=== PATIENT | male | born 1965 | race Caucasian/White ===

== ENCOUNTER 2021-05-12 07:25 | Outpatient (REF) | payer BC, SELFPAY ==
[2021-05-12 12:20] LABS: MANUAL DIFF FLAG NO
[2021-05-12 12:35] LABS: Basophils Percent Auto 0.6 % (0-2); Eosinophils Absolute Auto 0.1 X10*3/uL (0.0-0.4); Eosinophils Percent Auto 1.7 % (0-4); Hematocrit 47.3 % (42-52); Hemoglobin 15.5 g/dl (14.0-18.0); Imm Gran Abs Auto 0.01 X10*3/uL (0.00-0.03); Imm Gran Pct Auto 0.2 % (0.0-0.4); Lymphocytes Absolute Auto 1.4 X10*3/uL (1.2-4.9); Mean Corpuscular HGB Conc 32.8 g/dl (31.0-36.0); Mean Corpuscular Hemoglobin 31.4 pg (27.0-33.0); Mean Corpuscular Volume 95.9 fL (80-98); Mean Platelet Volume 10.4 fL (9.4-12.4); Monocytes Absolute Auto 0.4 X10*3/uL (0.1-1.2); Neutrophils Absolute Auto 3.3 X10*3/uL (2.0-8.3); Neutrophils Percent Auto 62.5 % (45-73); Platelet Count 148 X10*3/uL (160-400); Red Blood Count 4.93 X10*6/uL (4.60-5.80); Red Cell Distribution Width 11.9 % (11.0-16.0); White Blood Count 5.2 X10*3/uL (4.8-10.8)
[2021-05-12 13:01] LABS: Alanine Aminotransferase 42 U/L (0-40); Albumin Level 4.3 g/dL (3.5-5.0); Alkaline Phosphatase 61 U/L (39-117); Anion Gap 12 (12-20); Aspartate Amino Transferase 27 U/L (5-37); Bilirubin Total 1.2 mg/dL (0.0-1.0); Blood Urea Nitrogen 18 mg/dL (9-16); Carbon Dioxide 26 mmol/L (22-29); Chloride 107 mmol/L (96-108); Cholesterol 158 mg/dL; Estimated Glomerular Filt Rate > 60; Glucose Random 106 mg/dL (60-115); HDL Cholesterol 89 mg/dL; LDL Cholesterol Calculated 58 mg/dl; Sodium 141 mmol/L (135-145); Total Protein 6.5 g/dL (6.5-8.0); Triglycerides 55 mg/dL
[2021-05-12 13:25] LABS: Folate 19.3 ng/mL (> or = 4.0); Free T4 (Free Thyroxine) 0.94 ng/dL (0.71-1.85); Prostate Specific Antigen Scr 0.43 ng/mL (<0.05-4.0); Thyroid Stimulating Hormone 1.71 uIU/mL (0.32-4.0); Vitamin B12 404 pg/mL (200-900)
[2021-05-12 14:01] LABS: Estimated Average Glucose 100 mg/dL; Hemoglobin A1c % 5.1 %
== END 2021-05-12 07:26 | disposition home or self-care (01) ==
LOC: HO.HMGCLDS 07:25
PROVIDERS: PCP Internal Medicine; Visit Provider Internal Medicine
DX: I10 Essential (primary) hypertension (principal); R73.02 Impaired glucose tolerance (oral); K21.9 Gastro-esophageal reflux disease without esophagitis; E78.00 Pure hypercholesterolemia, unspecified; Z12.5 Encounter for screening for malignant neoplasm of prostate
CPT/HCPCS: 36415; 80053; 80061; 82607; 82746; 83036; 84153; 84439; 84443; 85025

== ENCOUNTER 2023-03-15 16:04 | Outpatient (AMB) | payer BC, SELFPAY ==
[2023-03-15 16:14] VITALS: BP 140/74; PULSE 78; O2SAT 98; BMI 31.5
--- NOTE | 2023-03-15 16:14 | A.OFFPC_ITS ---
Vital Signs 03/15/23 16:14 Height 5 ft 11 in Weight 226 lb BMI 31.5 BP 140/74 H Blood Pressure Location Lt brachial Position Sitting Pulse 78 Pulse Source Pulse Oximeter Pulse Oximetry (%) 98 Oxygen Delivery Method Room Air Intake Visit Reasons: annual exam Allergies No Known Allergies Allergy (Verified 03/15/23 16:14) Medication List - Last Reconciled 03/15/23 by Ryan Bautista MD [beet juice pill ] [cbd ] hydrochlorothiazide 12.5 mg PO DAILY 90 days lisinopril 20 mg PO DAILY 90 days Tobacco use date assessed: 03/02/22 Dental Screening Dental Screen Date: 03/15/23 Did you have a dental visit in the last 12 months?: Yes Did you have a dental problem in the last 6 months where you did not have access to dental care?: No Was dental information given to patient?: Patient has dentist HPI annual exam HPI Details 57-year-old obese male with impaired glucose tolerance GERD and hypertension last seen in February 2022 for physical exam. Patient comes in for physical exam. Blood work requested not done noted elevated liver function. blood work will do BP at home is here [facility] Medical History (Updated 03/15/23 @ 17:02 by Ryan Bautista MD) Diverticular disease GERD (gastroesophageal reflux disease) Hypertension Impaired glucose tolerance Thrombocytopenia Surgical History H/O umbilical hernia repair Family History (Updated 03/15/23 @ 16:15 by Clara Mart [facility]) Father Melanoma Mother No problems noted. Brother Melanoma Sister No problems noted. Sister No problems noted. Sister No problems noted. Sister No problems noted. Daughter No problems noted. Daughter No problems noted. Social History (Updated 03/15/23 @ 16:40 by Ryan Bautista MD) Housing: House Alcohol intake: current Alcohol intake frequency: a few times a week Patient Tobacco Use Status: Former Tobacco user Tobacco use type: Cigarette Years Smoked: stopped 1984 e-Cigarette/Vaping Use: Never Used Second Hand Smoke Exposure: No service: No Current occupational status: employed Cognitive needs: No Hearing needs: No Vision needs: No Questionnaire PHQ-9 Over the last 2 weeks, how often have you been bothered by any of the following problems? 1. Little interest or pleasure in doing things: not at all 2. Feeling down, depressed, or hopeless: not at all 3. Trouble falling or staying asleep, or sleeping too much: not at all 4. Feeling tired or having little energy: not at all 5. Poor appetite or overeating: not at all 6. Feeling bad about yourself - or that you are a failure or have let yourself or your family down: not at all 7. Trouble concentrating on things, such as reading the newspaper or watching television: not at all 8. Moving or speaking so slowly that other people could have noticed. Or the opposite - being so fidgety or restless that you have been moving around a lot more than usual: not at all 9. Thoughts that you would be better off or of hurting yourself in some way: not at all Total score: 0 Source: Developed by Drs. Octavio Orozco, Nelida Patel, Souleymane Luke and colleagues, with an educational joo from [employer]. Thrive Questionnaire Date Thrive assessed: 03/15/23 I am a: Patient What is your living situation today?: I have a steady place to live Within the past 12 months, did the food you bought not last and you didn't have the money to get more?: Never true Within the past 12 months, did you worry whether your food would run out before you got money to buy more?: Never true Do you have trouble paying for medicines?: No Do you have trouble getting transportation to medical appointments?: No Do you have trouble paying your heating and electricity bill?: No Do you have trouble taking care of your child, family member or friend?: No Do you have trouble with day-to-day activities such as bathing, preparing meals, shopping, managing finances, etc.?: No Are you currently unemployed and looking for a job?: No Are you interested in more education?: No Currently or been in a relationship where the following occur: no concerns reported AUDIT C Alcohol Use Questionnaire (AUDIT-C) 1. How often do you have a drink containing alcohol?: 2-3 times a week 2. How many drinks containing alcohol do you have on a typical day when you are drinking?: 3 or 4 3. How often do you have six or more drinks on one occasion?: Never Total Score: 4 STANLEY-7 AMB Questionnaire STANLEY-7 Date STANLEY - 7 assessed: 03/15/23 Feeling nervous, anxious, or on edge: 0 = Not at all Not being able to stop or control worryin = Not at all Worrying too much about different things: 0 = Not at all Trouble relaxin = Not at all Being so restless that it is hard to sit still: 0 = Not at all Becoming easily annoyed or irritable: 0 = Not at all Feeling afraid as if something awful might happen: 0 = Not at all Total STANLEY-7 score (0-4 normal; 5-9 mild; 10-14 moderate; 15-21 severe): 0 Source: Developed by Drs. Octavio Orozco, Nelida Patel, Souleymane Luke and colleagues, with an educational joo from [employer]. Review of Systems Const Denies poor appetite and Denies weakness Eyes Denies no additional complaints ENT Reports Normal hearing present, Denies dizziness, Denies nasal congestion, Denies tinnitus and Denies sore throat Card Denies chest pain, Denies syncope, Denies rapid heart rate and Denies dyspnea Resp Denies cough and Denies dyspnea GI Denies change in stool character, Reports constipation, Denies diarrhea, Denies nausea and Denies vomiting Denies dysuria and Denies urinary frequency Neuro Reports Normal hearing present, Denies confusion, Denies dizziness, Denies syncope and Denies weakness Psych Denies confusion Physical exam (Primary Care) Vital Signs: Last Vital Signs Pulse 78 03/15/23 16:14 BP 140/74 H 03/15/23 16:14 Pulse Ox 98 03/15/23 16:14 Oxygen Delivery Method Room Air 03/15/23 16:14 Care Plan Goal for BP management: L ear impacted cerumen R TM intact BMI result Body Mass Index 31.5 Tobacco/Smoking Status: Tobacco use Status Tobacco use date assessed 03/02/22 03/15/23 16:19 Patient Tobacco Use Status Former Tobacco user 03/15/23 16:19 Tobacco use type Cigarette 03/15/23 16:19 e-Cigarette/Vaping Use Never Used 03/15/23 16:19 PHQ-9: PHQ-9 Score PHQ-9: Total score 0 03/15/23 16:19 Thrive Assessment: Date of Thrive Assessment Date Thrive assessed 03/15/23 03/15/23 16:19 Currently or been in a relationship where the following occur: no concerns reported Const General: No confusion Orientation/consciousness: No confusion HENMT Head: Yes normocephalic Ears: external ears normal Face and sinus: Yes normal facial exam Mouth: moist mucous membranes Throat: Yes tonsils normal Eyes Conjunctivae: conjunctivae normal Pupils: Equal, round and reactive pupils present and Pupil accommodation reflex normal Direct Ophthalmoscopy: normal light reflex Neck Neck: No lymphadenopathy Thyroid: Thyroid normal Chest Chest palpation & inspection: normal inspection of the chest Resp Effort & Inspection: normal respiratory effort and no audible wheezes Auscultation: clear to auscultation bilaterally, no crackles, no wheezes and lung sounds not diminished Cardio Rate: regular rate Rhythm: regular rhythm Peripheral pulses: radial pulses present and dorsalis pedis present GI Other: guaiac negative prostate N Palpation (GI): no masses Auscultation: normal bowel sounds and normoactive bowel sounds Male General Exam: Yes normal external exam Skin General skin exam: no rashes or lesions noted Rashes: no rashes Neuro General: No confusion Cranial nerves: Yes Equal, round and reactive pupils present and Yes Normal hearing present Cognition (Neuro): normal cognition Gait exam (Neuro): Normal gait present Motor exam (neuro): 5/5 motor strength present throughout Deep tendon reflexes (DTR's): Right brachioradialis reflex intensity grade: 2+, Left brachioradialis reflex intensity grade: 2+, Right patellar reflex intensity grade: 2+ and Left patellar reflex intensity grade: 2+ Extrem General: No edema Office Procedures Cerumen Removal From which ear canal was the cerumen removed: left Removal: irrigation, otoscope w/curette and cerumen loop/spoon Notes: patient tolerated procedure well, no complications and ear canal clear [id number] Irrigation/Lavage Assessment and Plan Assessment & Plan (1) Annual physical exam: Code(s): Z00.00 - Encounter for general adult medical examination without abnormal findings (2) Hypertension: Code(s): I10 - Essential (primary) hypertension Qualifiers: Hypertension type: primary hypertension Qualified Code(s): I10 - Essential (primary) hypertension Plan: Continue with blood pressure medication. Decrease salt intake and exercise patient is on lisinopril 20 mg once a day and hydrochlorothiazide 12.5 mg once a day (3) GERD (gastroesophageal reflux disease): Code(s): K21.9 - Gastro-esophageal reflux disease without esophagitis Qualifiers: Esophagitis presence: without esophagitis Qualified Code(s): K21.9 - Gastro-esophageal reflux disease without esophagitis Plan: Avoid the foods that causes that usually spicy foods, tomato products, juices, coffee, soda and foods that your sensitive to. After eating do not lie down, allow 3-4 hours before in lie down. And keep the head of bed above 30 degrees to avoid the acid from going up. (4) Impaired glucose tolerance: Code(s): R73.02 - Impaired glucose tolerance (oral) Plan: Decrease the amount of carbohydrate intake, pasta, bread, rice and potatoes are all sugar and that is aside from all the sweet stuff, remember that fruits are good but they are Sweet also. (5) Obesity (BMI 30-39.9): Code(s): E66.9 - Obesity, unspecified Plan: Diet and exercise (6) Fatty liver: Code(s): K76.0 - Fatty (change of) liver, not elsewhere classified Plan: Low-fat diet (7) Tinnitus: Code(s): H93.19 - Tinnitus, unspecified ear Plan: hearing test requested (8) Vision changes: Code(s): H53.9 - Unspecified visual disturbance (9) Impacted cerumen of left ear: Code(s): H61.22 - Impacted cerumen, left ear Plan: irrigation and scoop used TM intact Orders: Orders Vitamin B12 and Folate Today I10 - Essential (primary) hypertension Comprehensive Met. Panel Today I10 - Essential (primary) hypertension Hemoglobin A1c Today R73.02 - Impaired glucose tolerance (oral) Lipid Panel Today E78.00 - Pure hypercholesterolemia, unspecified, I10 - Essential (primary) hypertension Prostate Specific Antigen Scr Today I10 - Essential (primary) hypertension Free T4 (Free Thyroxine) Today I10 - Essential (primary) hypertension Thyroid Stimulating Hormone Today I10 - Essential (primary) hypertension Complete Blood Count Auto Diff Today I10 - Essential (primary) hypertension Hepatitis B,C Profile Today I10 - Essential (primary) hypertension, R79.89 - Other specified abnormal findings of blood chemistry Ferritin Today R73.02 - Impaired glucose tolerance (oral) Referrals Speech and Hearing Referral H93.19 - Tinnitus, unspecified ear Ophthalmology Referral H53.9 - Unspecified visual disturbance Medications: Refilled hydrochlorothiazide 12.5 mg PO DAILY 90 days 90 tabs 3RF I10 - Essential (primary) hypertension lisinopril 20 mg PO DAILY 90 days 90 tabs 3RF I10 - Essential (primary) hypertension Coding Level of Care Code Est Pt Prev Care 40-64y(70338) Diagnoses Annual physical exam Z00.00 Hypertension I10 Hypertension type: primary hypertension GERD (gastroesophageal reflux disease) K21.9 Esophagitis presence: without esophagitis Impaired glucose tolerance R73.02 Obesity (BMI 30-39.9) E66.9 Fatty liver K76.0 Tinnitus H93.19 Vision changes H53.9 Impacted cerumen of left ear H61.22 CPT Codes Office Procedure - CPT: 16654-Bxl Irrigation/Lavage ([id number])
== END 2023-03-15 17:07 | disposition home or self-care (01) ==
PROVIDERS: PCP Internal Medicine; Visit Provider Internal Medicine
DX: Z00.00 Encounter for general adult medical examination without abnormal findings (principal); I10 Essential (primary) hypertension; K21.9 Gastro-esophageal reflux disease without esophagitis; E66.9 Obesity, unspecified; H61.22 Impacted cerumen, left ear
CPT/HCPCS: 69210; 99396

== ENCOUNTER 2023-07-02 09:56 | Outpatient (REF) | payer BC, SELFPAY ==
--- NOTE | ~2023-07-02 | XR_ITS ---
EXAMINATION: XR FOOT, RIGHT CLINICAL INFORMATION: Right ankle sprain, pain COMPARISON: None available. TECHNIQUE: AP, lateral, and oblique views of the right foot. FINDINGS: Hallux valgus and hammertoe deformities are seen. Large calcaneal spur. No fracture or dislocation. XR/XR foot RT min 3V IMPRESSION: Hallux valgus. Large calcaneal spur.
== END 2023-07-02 09:57 | disposition home or self-care (01) ==
LOC: HO.XRAY 09:56
PROVIDERS: PCP Internal Medicine; Visit Provider Podiatrist
DX: S93.401D Sprain of unspecified ligament of right ankle, subsequent encounter (principal)
CPT/HCPCS: 73630

== ENCOUNTER 2023-07-12 12:12 | Outpatient (AMB) | payer BC, SELFPAY ==
[2023-07-12 12:30] VITALS: BP 138/90; PULSE 88; O2SAT 98; BMI 31.1
--- NOTE | 2023-07-12 12:30 | A.OFFPC_ITS ---
Vital Signs 07/12/23 12:30 07/12/23 12:49 Height 5 ft 11 in Weight 223 lb BMI 31.1 BP 138/90 H 120/80 Blood Pressure Location Lt brachial Lt brachial Position Sitting Sitting Pulse 88 Pulse Source Pulse Oximeter Pulse Oximetry (%) 98 Oxygen Delivery Method Room Air Intake Visit Reasons: [facility], Pneumonia, Elem Disease, 07/05 Intake Note: Patient is here to follow-up after a visit the emergency department at [facility] on 07/05 Business Process Lead Required: No Allergies No Known Allergies Allergy (Verified 07/12/23 12:33) Tobacco use date assessed: 07/12/23 Dental Screening Dental Screen Date: 07/12/23 Did you have a dental visit in the last 12 months?: Yes Did you have a dental problem in the last 6 months where you did not have access to dental care?: No Was dental information given to patient?: Patient has dentist HPI [facility], Pneumonia, Elem Disease, 07/05 HPI Details 57-year-old obese male with hypertension GERD impaired glucose tolerance fatty liver coming in for follow-up. Last seen in March 2023 for physical exam. Review of the notes went to the Urgent Care June 2023 cough, fever and was told positive for Lyme disease and pneumonia. had coughing and sob- 07/05/2023- placved on albuterol, doxycycline and augmentin. tick bite on the R hip area, no redness PFSH Medical History (Updated 07/12/23 @ 12:43 by Ryan Bautista MD) Diverticular disease Hypertension Thrombocytopenia GERD (gastroesophageal reflux disease) Impaired glucose tolerance Surgical History H/O umbilical hernia repair Family History (Updated 03/15/23 @ 16:15 by Clara Mart CMA) Father Melanoma Mother No problems noted. Brother Melanoma Sister No problems noted. Sister No problems noted. Sister No problems noted. Sister No problems noted. Daughter No problems noted. Daughter No problems noted. Social History (Updated 03/15/23 @ 16:40 by Ryan Bautista MD) Housing: House Alcohol intake: current Alcohol intake frequency: a few times a week Patient Tobacco Use Status: Former Tobacco user Tobacco use type: Cigarette Years Smoked: stopped 1984 e-Cigarette/Vaping Use: Never Used Second Hand Smoke Exposure: No service: No Current occupational status: employed Cognitive needs: No Hearing needs: No Vision needs: No Questionnaire Thrive Questionnaire Date Thrive assessed: 03/15/23 AUDIT C Alcohol Use Questionnaire (AUDIT-C) 1. How often do you have a drink containing alcohol?: 2-3 times a week 2. How many drinks containing alcohol do you have on a typical day when you are drinking?: 3 or 4 3. How often do you have six or more drinks on one occasion?: Never Total Score: 4 STANLEY-7 AMB Questionnaire STANLEY-7 Date STANLEY - 7 assessed: 03/15/23 Source: Developed by Drs. Octavio Orozco, Nelida Patel, Souleymane Luke and colleagues, with an educational joo from [employer]. Physical exam (Primary Care) Vital Signs: Last Vital Signs Pulse 88 07/12/23 12:30 BP 120/80 07/12/23 12:49 Pulse Ox 98 07/12/23 12:30 Oxygen Delivery Method Room Air 07/12/23 12:30 BMI result Body Mass Index 31.1 Tobacco/Smoking Status: Tobacco use Status Tobacco use date assessed 07/12/23 07/12/23 12:34 Patient Tobacco Use Status Former Tobacco user 07/12/23 12:34 Tobacco use type Cigarette 07/12/23 12:34 e-Cigarette/Vaping Use Never Used 07/12/23 12:34 Thrive Assessment: Date of Thrive Assessment Date Thrive assessed 03/15/23 07/12/23 12:34 Const General: alert; No acute distress Eyes Conjunctivae: conjunctivae normal Resp Auscultation: clear to auscultation bilaterally Cardio Rate: regular rate Rhythm: regular rhythm GI Inspection: Yes normal to inspection Extrem General: Yes normal to inspection and No edema Assessment and Plan Assessment & Plan (1) Pneumonia: Code(s): J18.9 - Pneumonia, unspecified organism (2) Positive Lyme disease serology: Code(s): R76.8 - Other specified abnormal immunological findings in serum Orders: Orders Lyme IgG/IgM w/reflex to WB Today R76.8 - Other specified abnormal immunological findings in serum XR chest 2V Today J18.9 - Pneumonia, unspecified organism Coding Level of Care Code Est Pt Level 4 (82279) Diagnoses Pneumonia J18.9 Positive Lyme disease serology R76.8
[2023-07-12 12:49] VITALS: BP 120/80
== END 2023-07-12 12:59 | disposition home or self-care (01) ==
PROVIDERS: PCP Internal Medicine; Visit Provider Internal Medicine
DX: J18.9 Pneumonia, unspecified organism (principal); R76.8 Other specified abnormal immunological findings in serum
CPT/HCPCS: 99214

== ENCOUNTER 2023-08-01 06:01 | Outpatient (REF) | payer BC, SELFPAY ==
--- NOTE | ~2023-08-01 | XR_ITS ---
EXAMINATION: XR CHEST CLINICAL INFORMATION: Pneumonia KUB 10/11/2017, CT abdomen pelvis 08/27/2014 None available. TECHNIQUE: 2 views of the chest were obtained. FINDINGS: Aside from some left basilar atelectasis unchanged from the 08/27/2014 CT, no significant abnormality is noted involving the heart, lungs, mediastinum, bony thorax or soft tissues. XR/XR chest 2V IMPRESSION: Left basilar scarring/atelectasis stable since 2014.
[2023-08-01 07:30] LABS: Estimated Average Glucose 105 mg/dL; Hemoglobin A1C 148.4106 umol/L; Hemoglobin A1c % 5.3 % (<6.0)
[2023-08-01 07:48] LABS: Alanine Aminotransferase 40 U/L (0-40); Albumin Level 4.2 g/dL (3.5-5.0); Alkaline Phosphatase 65 U/L (39-117); Anion Gap 15 (12-20); Aspartate Amino Transferase 27 U/L (5-37); Blood Urea Nitrogen 17 mg/dL (9-16); Calcium 9.4 mg/dL (8.4-10.2); Carbon Dioxide 23 mmol/L (22-29); Chloride 106 mmol/L (96-108); Cholesterol 162 mg/dL (<200); Estimated Glomerular Filt Rate > 60; Glucose Random 122 mg/dL (60-115); HDL Cholesterol 66 mg/dL (>40); LDL Cholesterol Calculated 85 mg/dL (<100); Potassium 3.6 mmol/L (3.3-5.1); Sodium 140 mmol/L (135-145); Triglycerides 56 mg/dL (<150)
[2023-08-01 08:05] LABS: HBc Num1 0.11 S/CO (0.00-0.79); HBsAGNum1 0.32 S/CO (0.00-0.99); Hepatitis B Core Antibody Nonreactive (Nonreactive); Hepatitis B Surface Antigen Negative (Negative); ~HepC Num1 0.19 S/CO (0.00-0.79); ~Hepatitis B Surface Antibody NONREACTIVE (Nonreactive); ~Hepatitis C Antibody Nonreactive (Nonreactive)
[2023-08-01 08:06] LABS: Ferritin 647 ng/mL (20-250); Free T4 (Free Thyroxine) 0.99 ng/dL (0.71-1.85); Thyroid Stimulating Hormone 1.34 uIU/mL (0.32-4.0)
[2023-08-01 08:14] LABS: Folate 14.3 ng/mL (> or = 4.0); Prostate Specific Antigen Scr 0.65 ng/mL (<0.05-4.0); Vitamin B12 459 pg/mL (200-900)
[2023-08-02 13:29] LABS: Lyme Abs Screen <0.90 index
== END 2023-08-01 06:02 | disposition home or self-care (01) ==
LOC: HO.XRAY 06:01
PROVIDERS: PCP Internal Medicine; Visit Provider Internal Medicine
DX: Z12.5 Encounter for screening for malignant neoplasm of prostate (principal); J18.9 Pneumonia, unspecified organism; R76.8 Other specified abnormal immunological findings in serum; R79.89 Other specified abnormal findings of blood chemistry; R73.02 Impaired glucose tolerance (oral); E78.00 Pure hypercholesterolemia, unspecified; I10 Essential (primary) hypertension
CPT/HCPCS: 36415; 71046; 80053; 80061; 82607; 82728; 82746; 83036; 84153; 84439; 84443; 85007; 85025; 85027; 86617; 86618; 86704; 86706; 86803; 87340

== ENCOUNTER 2024-04-01 10:25 | Outpatient (AMB) | payer BC, SELFPAY ==
[2024-04-01 10:30] VITALS: BP 132/88; PULSE 68; O2SAT 98; BMI 31.7
--- NOTE | 2024-04-01 10:30 | MHC.PC.OV ---
Vital Signs 04/01/24 10:30 Height 5 ft 11 in Weight 227 lb BMI 31.7 BP 132/88 Blood Pressure Location Lt brachial Position Sitting Pulse 68 Pulse Source Pulse Oximeter Pulse Oximetry (%) 98 Oxygen Delivery Method Room Air Intake Visit Reasons: pe Allergies No Known Allergies Allergy (Verified 04/01/24 10:30) Tobacco use date assessed: 04/01/24 Dental Screening Dental Screen Date: 04/01/24 Did you have a dental visit in the last 12 months?: Yes Did you have a dental problem in the last 6 months where you did not have access to dental care?: No Was dental information given to patient?: Patient has dentist HPI pe HPI Details 58-year-old obese male with a history of impaired glucose tolerance GERD hypertension fatty liver recently having history of positive Lyme disease coming in for follow-up. Last seen in 2022. Patient's colonoscopy is up-to-date January 2016 [facility] Medical History (Updated 04/01/24 @ 11:28 by Ryan Bautista MD) Diverticular disease Hypertension Thrombocytopenia GERD (gastroesophageal reflux disease) Impaired glucose tolerance Surgical History H/O umbilical hernia repair Family History (Updated 03/15/23 @ 16:15 by Clara Mart CMA) Father Melanoma Mother No problems noted. Brother Melanoma Sister No problems noted. Sister No problems noted. Sister No problems noted. Sister No problems noted. Daughter No problems noted. Daughter No problems noted. Social History (Updated 04/01/24 @ 11:17 by Ryan Bautista MD) Housing: House Alcohol intake: current Alcohol intake frequency: a few times a week Comment: 2x a week 2 glasses Patient Tobacco Use Status: Former Tobacco user Tobacco use type: Cigarette Years Smoked: stopped 1984 e-Cigarette/Vaping Use: Never Used Second Hand Smoke Exposure: No service: No Current occupational status: employed Current occupational exposures/hazards: Yes Cognitive needs: No Hearing needs: No Vision needs: No Questionnaire PHQ-9 Over the last 2 weeks, how often have you been bothered by any of the following problems? 1. Little interest or pleasure in doing things: not at all 2. Feeling down, depressed, or hopeless: not at all 3. Trouble falling or staying asleep, or sleeping too much: not at all 4. Feeling tired or having little energy: not at all 5. Poor appetite or overeating: not at all 6. Feeling bad about yourself - or that you are a failure or have let yourself or your family down: not at all 7. Trouble concentrating on things, such as reading the newspaper or watching television: not at all 8. Moving or speaking so slowly that other people could have noticed. Or the opposite - being so fidgety or restless that you have been moving around a lot more than usual: not at all 9. Thoughts that you would be better off or of hurting yourself in some way: not at all Total score: 0 Depression Screening Interpretation: Negative Depression Screening Done: Yes Source: Developed by Drs. Octavio Orozco, Nelida Patel, Souleymane Luke and colleagues, with an educational joo from [employer]. Thrive Questionnaire Date Thrive assessed: 04/01/24 I am a: Patient What is your living situation today?: I have a steady place to live Within the past 12 months, did the food you bought not last and you didn't have the money to get more?: Never true Within the past 12 months, did you worry whether your food would run out before you got money to buy more?: Never true Do you have trouble paying for medicines?: No Do you have trouble getting transportation to medical appointments?: No Do you have trouble paying your heating and electricity bill?: No Do you have trouble taking care of your child, family member or friend?: No Do you have trouble with day-to-day activities such as bathing, preparing meals, shopping, managing finances, etc.?: No Are you currently unemployed and looking for a job?: No Are you interested in more education?: No Currently or been in a relationship where the following occur: No concerns reported THRIVE Score: 0 AUDIT C Alcohol Use Questionnaire (AUDIT-C) 1. How often do you have a drink containing alcohol?: 2-3 times a week 2. How many drinks containing alcohol do you have on a typical day when you are drinking?: 3 or 4 3. How often do you have six or more drinks on one occasion?: Never Total Score: 4 STANLEY-7 AMB Questionnaire STANLEY-7 Date STANLEY - 7 assessed: 04/01/24 Feeling nervous, anxious, or on edge: 0 = Not at all Not being able to stop or control worryin = Not at all Worrying too much about different things: 0 = Not at all Trouble relaxin = Not at all Being so restless that it is hard to sit still: 0 = Not at all Becoming easily annoyed or irritable: 0 = Not at all Feeling afraid as if something awful might happen: 0 = Not at all Total STANLEY-7 score (0-4 normal; 5-9 mild; 10-14 moderate; 15-21 severe): 0 Source: Developed by Drs. Octavio Orozco, Nelida Patel, Souleymane Luke and colleagues, with an educational joo from [employer]. Review of Systems Const Denies poor appetite and Denies weakness Eyes Denies no additional complaints ENT Reports Normal hearing present, Denies dizziness, Denies nasal congestion, Denies tinnitus and Denies sore throat Card Denies chest pain, Denies syncope, Denies rapid heart rate and Denies dyspnea Resp Denies cough and Denies dyspnea GI Denies change in stool character, Reports constipation, Denies diarrhea, Denies nausea and Denies vomiting Denies dysuria and Denies urinary frequency Neuro Reports Normal hearing present, Denies confusion, Denies dizziness, Denies syncope and Denies weakness Psych Denies confusion Physical exam (Primary Care) Vital Signs: Last Vital Signs Pulse 68 04/01/24 10:30 BP 132/88 04/01/24 10:30 Pulse Ox 98 04/01/24 10:30 Oxygen Delivery Method Room Air 04/01/24 10:30 BMI result Body Mass Index 31.7 Tobacco/Smoking Status: Tobacco use Status Tobacco use date assessed 04/01/24 04/01/24 10:35 Patient Tobacco Use Status Former Tobacco user 04/01/24 10:35 Tobacco use type Cigarette 04/01/24 10:35 e-Cigarette/Vaping Use Never Used 04/01/24 10:35 PHQ-9: PHQ-9 Score PHQ-9: Total score 0 04/01/24 10:35 Depression Screening Interpretation: Negative Thrive Assessment: Date of Thrive Assessment Date Thrive assessed 04/01/24 04/01/24 10:35 Currently or been in a relationship where the following occur: No concerns reported Const General: No confusion Orientation/consciousness: No confusion HENMT Head: Yes normocephalic Ears: external ears normal and TM's normal bilaterally Face and sinus: Yes normal facial exam Mouth: moist mucous membranes Throat: Yes tonsils normal Eyes Conjunctivae: conjunctivae normal Pupils: Equal, round and reactive pupils present and Pupil accommodation reflex normal Direct Ophthalmoscopy: normal light reflex Neck Neck: No lymphadenopathy Thyroid: Thyroid normal Chest Chest palpation & inspection: normal inspection of the chest Resp Effort & Inspection: normal respiratory effort and no audible wheezes Auscultation: clear to auscultation bilaterally, no crackles, no wheezes and lung sounds not diminished Cardio Rate: regular rate Rhythm: regular rhythm Peripheral pulses: radial pulses present and dorsalis pedis present GI Palpation (GI): no masses Auscultation: normal bowel sounds and normoactive bowel sounds Rectal Exam - Male: Yes deferred Skin General skin exam: no rashes or lesions noted Rashes: no rashes Neuro General: No confusion Cranial nerves: Yes Equal, round and reactive pupils present and Yes Normal hearing present Cognition (Neuro): normal cognition Gait exam (Neuro): Normal gait present Motor exam (neuro): 5/5 motor strength present throughout Deep tendon reflexes (DTR's): Right brachioradialis reflex intensity grade: 2+, Left brachioradialis reflex intensity grade: 2+, Right patellar reflex intensity grade: 2+ and Left patellar reflex intensity grade: 2+ Extrem General: No edema Assessment and Plan Assessment & Plan (1) Annual physical exam: Code(s): Z00.00 - Encounter for general adult medical examination without abnormal findings Plan: Patient is advised to eat healthy, keep well hydrated, keep active and have adequate sleep. (2) Obesity (BMI 30-39.9): Code(s): E66.9 - Obesity, unspecified Plan: Diet and exercise (3) Fatty liver: Code(s): K76.0 - Fatty (change of) liver, not elsewhere classified Plan: Low-fat diet and exercise (4) Hypertension: Code(s): I10 - Essential (primary) hypertension Qualifiers: Hypertension type: primary hypertension Qualified Code(s): I10 - Essential (primary) hypertension Plan: Continue with blood pressure medication. Decrease salt intake and exercise on lisinopril and hydrochlorothiazide (5) GERD (gastroesophageal reflux disease): Code(s): K21.9 - Gastro-esophageal reflux disease without esophagitis Qualifiers: Esophagitis presence: without esophagitis Qualified Code(s): K21.9 - Gastro-esophageal reflux disease without esophagitis Plan: Avoid the foods that causes that usually spicy foods, tomato products, juices, coffee, soda and foods that your sensitive to. After eating do not lie down, allow 3-4 hours before in lie down. And keep the head of bed above 30 degrees to avoid the acid from going up. (6) Impaired glucose tolerance: Code(s): R73.02 - Impaired glucose tolerance (oral) Plan: Decrease the amount of carbohydrate intake, pasta, bread, rice and potatoes are all sugar and that is aside from all the sweet stuff, remember that fruits are good but they are Sweet also. (7) Bunion of great toe of right foot: Code(s): M21.611 - Bunion of right foot (8) Shoulder pain, left: Code(s): M25.512 - Pain in left shoulder Orders: Orders Free T4 (Free Thyroxine) 4 Months R73.02 - Impaired glucose tolerance (oral) Comprehensive Met. Panel 4 Months R73.02 - Impaired glucose tolerance (oral) Lipid Panel 4 Months E78.00 - Pure hypercholesterolemia, unspecified, R73.02 - Impaired glucose tolerance (oral) Vitamin B12 and Folate 4 Months R73.02 - Impaired glucose tolerance (oral) Hemoglobin A1c 4 Months R73.02 - Impaired glucose tolerance (oral) Complete Blood Count Auto Diff 4 Months R73.02 - Impaired glucose tolerance (oral) Thyroid Stimulating Hormone 4 Months R73.02 - Impaired glucose tolerance (oral) Prostate Specific Antigen Scr 4 Months R73.02 - Impaired glucose tolerance (oral) XR shoulder LT min 2V Today M25.512 - Pain in left shoulder Referrals Podiatry Referral M21.611 - Bunion of right foot Coding Level of Care Code Est Pt Prev Care 40-64y(20007) Diagnoses Annual physical exam Z00.00 Obesity (BMI 30-39.9) E66.9 Fatty liver K76.0 Primary hypertension I10 Hypertension type: primary hypertension Gastroesophageal reflux disease without esophagitis K21.9 Esophagitis presence: without esophagitis Impaired glucose tolerance R73.02 Bunion of great toe of right foot M21.611 Shoulder pain, left M25.512
== END 2024-04-01 11:32 | disposition home or self-care (01) ==
PROVIDERS: PCP Internal Medicine; Visit Provider Internal Medicine
DX: Z00.00 Encounter for general adult medical examination without abnormal findings (principal); E66.9 Obesity, unspecified; Z68.31 Body mass index [BMI] 31.0-31.9, adult; K76.0 Fatty (change of) liver, not elsewhere classified; I10 Essential (primary) hypertension; K21.9 Gastro-esophageal reflux disease without esophagitis; R73.02 Impaired glucose tolerance (oral); M21.611 Bunion of right foot; M25.512 Pain in left shoulder
CPT/HCPCS: 99396

== ENCOUNTER 2024-10-10 07:59 | Outpatient (REF) | payer BC, SELFPAY ==
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
--- OUTSIDE RECORDS SUMMARY | 2024-10-10 08:02 | XMS_ITS | Patient Health Record ---
Author Organization [facility] Address [address] [place] [address] Care Team Providers Care Associate Vice President Name Role Phone MicheleRyan Primary Care Provider Unavailabl e Black, Liliana Unavailable [phone] Allergies No Known Allergies Results Component Value Reference Range Notes X ray : Foot, right 3V Reviewed date:07/21/2024 06:04:52 PM Interpretation:See Examination above Performing Lab: Notes/Report: See Examination above X ray : Foot, left 3V Reviewed date:07/21/2024 06:10:12 PM Interpretation:See Examination above Performing Lab: Notes/Report: See Examination above Reason For Referral No Information Medications Medication SIG (Take, Route, Frequency, Duration) [...] Status Risk Notes Problem Acquired hallux valgus (13818910) Hallux valgus (acquired), right foot (M20.11) Active confirmed Problem 605917129 Hammer toe of right foot (M20.41) Active confirmed Problem 799587356 Hammer toe of left foot (M20.42) Active confirmed Problem 0497080456 Hallux valgus of left foot (M20.12) Active confirmed Problem Solis's neuroma of right foot (82291534162387 8) 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) Active confirmed Problem 62507365 Essential hypertension (I10) Active confirmed Vital Signs Blood pressure diastolic 89 mm Hg 07/21/2024 Height 5ft 11in in 07/21/2024 Blood pressure systolic 129 mm Hg 07/21/2024 Weight 225 lbs 07/21/2024 BMI 31.38 kg/m2 07/21/2024 Encounters Encounter Location Date Provider Diagnosis [address] [address] 07/21/2024 Liliana Black Pain in right foot [...] and Hammer toe of left foot M20.[address] [address] 04/10/2024 Liliana Shelby [address] [address] 07/21/2024 Liliana Shelby [address] [address] 08/06/2024 Liliana Shelby Assessments Encounter Date Diagnosis (ICD Code) Assessment [...] (ICD-10 - M20.42) i Plan Of Treatment No Information Insurance Providers Payer Name Payer Address Payer Phone Subscriber Number Group Number Insured Name Patient Relationship to Insured Coverage Start Date Coverage End Date [facility] Others [address] [place] [address] [phone] [id number] Viral Albarado Self - patient is the insured Medical (General) History Medical History History ICD Code Diverticulosis High Blood Pressure Lyme disease Kidney disease- at 4 years old no issues since then Surgical History Surgery Date(Month/Year) hernia 1992 vasectomy 1995
--- OUTSIDE RECORDS SUMMARY | 2024-10-10 08:02 | XMS_ITS ---
Author Organization [facility] Address [address] [place] [address] Care Team Providers Care Dental Floss Packer Name Role Phone Ryan Bautista Primary Care Provider Unavailabl e Black, Liliana Unavailable [phone] REASON FOR VISIT purchase [employer]/ 43 Encounters Encounter Location Date Provider Diagnosis [facility] [address] [place] [address] 08/06/2024 Lilianadorie Shelby Plan Of Treatment No Information Progress Notes * Viral CORTEZDOB:1965 ([age] yo M)Acc No.[id number]:08/06/2024 Patient:Viral STONE :1965???Age:58 Y???Sex:Male Address:[address] [place] [id number] * true * Date:? Generated for Traci ugarte/Kiana/eTransmitting on:?10/10/2024 08:02 AM EST
[2024-10-10 11:46] LABS: MANUAL DIFF FLAG NO
[2024-10-10 12:00] LABS: Basophils Percent Auto 0.5 % (0-2); Eosinophils Absolute Auto 0.1 X10*3/uL (0.0-0.4); Eosinophils Percent Auto 1.7 % (0-4); Hemoglobin 15.6 g/dl (14.0-18.0); Imm Gran Abs Auto 0.02 X10*3/uL (0.00-0.03); Imm Gran Pct Auto 0.3 % (0.0-0.4); Lymphocytes Absolute Auto 1.9 X10*3/uL (1.2-4.9); Lymphocytes Percent Auto 33.4 % (20-40); Mean Corpuscular HGB Conc 33.2 g/dl (31.0-36.0); Mean Corpuscular Hemoglobin 31.7 pg (27.0-33.0); Mean Corpuscular Volume 95.5 fL (80.0-98.0); Mean Platelet Volume 10.9 fL (9.4-12.4); Monocytes Absolute Auto 0.5 X10*3/uL (0.1-1.2); Monocytes Percent Auto 8.6 % (2-11); Neutrophils Absolute Auto 3.2 x10*3/uL (2.0-8.3); Neutrophils Percent Auto 55.5 % (45-73); Platelet Count 166 X10*3/uL (160-400); Red Blood Count 4.92 X10*6/uL (4.60-5.80); Red Cell Distribution Width 12.2 % (11.0-16.0); White Blood Count 5.7 X10*3/uL (4.8-10.8)
[2024-10-10 12:35] LABS: Alanine Aminotransferase 52 U/L (0-40); Albumin Level 4.1 g/dL (3.5-5.0); Alkaline Phosphatase 67 U/L (39-117); Anion Gap 12 (12-20); Aspartate Amino Transferase 32 U/L (5-37); Bilirubin Total 0.8 mg/dL (0.0-1.0); Blood Urea Nitrogen 18 mg/dL (9-16); Calcium 9.1 mg/dL (8.4-10.2); Carbon Dioxide 25 mmol/L (22-29); Chloride 111 mmol/L (96-108); Cholesterol 138 mg/dL (<200); Estimated Glomerular Filt Rate > 60; Glucose Random 93 mg/dL (60-115); HDL Cholesterol 57 mg/dL (>40); LDL Cholesterol Calculated 70 mg/dL (<100); Sodium 144 mmol/L (135-145); Triglycerides 58 mg/dL (<150)
[2024-10-10 12:42] LABS: Estimated Average Glucose 105 mg/dL; Free T4 (Free Thyroxine) 1.03 ng/dL (0.71-1.85); Hemoglobin A1C 141.9706 umol/L; Hemoglobin A1c % 5.3 % (<6.0); Thyroid Stimulating Hormone 1.54 uIU/mL (0.32-4.0); Total Hemoglobin (HGBA1C) 4063.0095 umol/L
[2024-10-10 12:50] LABS: Folate 15.2 ng/mL (> or = 4.0); Prostate Specific Antigen Scr 0.81 ng/mL (<0.05-4.0); Vitamin B12 553 pg/mL (200-900)
== END 2024-10-10 08:00 | disposition home or self-care (01) ==
LOC: HO.HMGCLDS 07:59
PROVIDERS: PCP Internal Medicine; Visit Provider Internal Medicine
DX: R73.02 Impaired glucose tolerance (oral) (principal); E78.00 Pure hypercholesterolemia, unspecified; Z12.5 Encounter for screening for malignant neoplasm of prostate
CPT/HCPCS: 36415; 80053; 80061; 82607; 82746; 83036; 84153; 84439; 84443; 85025

== ENCOUNTER 2025-04-02 16:05 | Outpatient (AMB) | payer OTHER, SELFPAY ==
[2025-04-02 16:35] VITALS: BP 156/92; PULSE 68; RESP 18; TEMP 36.3; O2SAT 96; BMI 31.4
--- NOTE | 2025-04-02 16:35 | MHC.PC.OV ---
Vital Signs 04/02/25 16:35 Height 5 ft 11 in Weight 225 lb 2 oz BMI 31.4 BP 156/92 H Blood Pressure Location Lt brachial Position Sitting Respiration 18 Pulse 68 Pulse Source Pulse Oximeter Temp 97.3 F Temp Source Temporal Artery Scan Pulse Oximetry (%) 96 Oxygen Delivery Method Room Air Intake Visit Reasons: Annual Exam License And Permit Specialist Required: No Accompanied by: Self / Same As Patient Allergies No Known Allergies Allergy (Verified 04/02/25 16:36) Medication List - Last Reconciled 04/02/25 by Ryan Bautista MD [beet juice pill ] [cbd ] coenzyme Q10 (Ultra CoQ10) 75 mg PO DAILY hydrochlorothiazide 12.5 mg PO DAILY 90 days lisinopril 30 mg PO DAILY 90 days Tobacco use date assessed: 04/02/25 Dental Screening Dental Screen Date: 04/02/25 Did you have a dental visit in the last 12 months?: Yes Did you have a dental problem in the last 6 months where you did not have access to dental care?: No Was dental information given to patient?: Patient has dentist [facility] Medical History Diverticular disease Hypertension Thrombocytopenia GERD (gastroesophageal reflux disease) Impaired glucose tolerance Surgical History H/O umbilical hernia repair Family History (Updated 04/02/25 @ 17:06 by Ryan Bautista MD) Father Melanoma Mother CVA (cerebral vascular accident) Brother Melanoma Sister No problems noted. Sister No problems noted. Sister No problems noted. Sister No problems noted. Daughter No problems noted. Daughter No problems noted. Social History (Updated 04/02/25 @ 17:07 by Ryan Bautista MD) Housing: House Alcohol intake: current Alcohol intake frequency: a few times a week Comment: 2x a week 2 glasses 3 days in a week 2 before bed- 03/2025 Patient Tobacco Use Status: Former Tobacco user Tobacco use type: Cigarette Years Smoked: stopped 1984 e-Cigarette/Vaping Use: Never Used Second Hand Smoke Exposure: No service: No Current occupational status: employed Current occupational exposures/hazards: Yes Cognitive needs: No Hearing needs: No Vision needs: No Questionnaire PHQ-9 Over the last 2 weeks, how often have you been bothered by any of the following problems? 1. Little interest or pleasure in doing things: not at all 2. Feeling down, depressed, or hopeless: not at all 3. Trouble falling or staying asleep, or sleeping too much: not at all 4. Feeling tired or having little energy: not at all 5. Poor appetite or overeating: not at all 6. Feeling bad about yourself - or that you are a failure or have let yourself or your family down: not at all 7. Trouble concentrating on things, such as reading the newspaper or watching television: not at all 8. Moving or speaking so slowly that other people could have noticed. Or the opposite - being so fidgety or restless that you have been moving around a lot more than usual: not at all 9. Thoughts that you would be better off or of hurting yourself in some way: not at all Total score: 0 Depression Screening Interpretation: Negative Depression Screening Done: Yes Source: Developed by Drs. Octavio Orozco, Nelida Patel, Souleymane Luke and colleagues, with an educational joo from [employer]. Thrive Questionnaire Date Thrive assessed: 04/02/25 I am a: Patient What is your living situation today?: I have a steady place to live Within the past 12 months, did the food you bought not last and you didn't have the money to get more?: Never true Within the past 12 months, did you worry whether your food would run out before you got money to buy more?: Never true Do you have trouble paying for medicines?: No Do you have trouble getting transportation to medical appointments?: No Do you have trouble paying your heating and electricity bill?: No Do you have trouble taking care of your child, family member or friend?: No Do you have trouble with day-to-day activities such as bathing, preparing meals, shopping, managing finances, etc.?: No Are you currently unemployed and looking for a job?: No Are you interested in more education?: No Please select the resources that you would like help with: Food Currently or been in a relationship where the following occur: No concerns reported THRIVE Score: 0 AUDIT C Alcohol Use Questionnaire (AUDIT-C) 1. How often do you have a drink containing alcohol?: 4 or more times a week 2. How many drinks containing alcohol do you have on a typical day when you are drinking?: 3 or 4 3. How often do you have six or more drinks on one occasion?: Less than monthly Total Score: 6 STANLEY-7 AMB Questionnaire STANLEY-7 Date STANLEY - 7 assessed: 04/02/25 Feeling nervous, anxious, or on edge: 0 = Not at all Not being able to stop or control worryin = Not at all Worrying too much about different things: 0 = Not at all Trouble relaxin = Not at all Being so restless that it is hard to sit still: 0 = Not at all Becoming easily annoyed or irritable: 0 = Not at all Feeling afraid as if something awful might happen: 0 = Not at all Total STANLEY-7 score (0-4 normal; 5-9 mild; 10-14 moderate; 15-21 severe): 0 Source: Developed by Drs. Octavio Orozco, Nelida Patel, Souleymane Luke and colleagues, with an educational joo from [employer]. Review of Systems Const Denies poor appetite and Denies weakness Eyes Denies no additional complaints ENT Reports Normal hearing present, Denies dizziness, Denies nasal congestion, Denies tinnitus and Denies sore throat Card Denies chest pain, Denies syncope, Denies rapid heart rate and Denies dyspnea Resp Denies cough and Denies dyspnea GI Denies change in stool character, Reports constipation, Denies diarrhea, Denies nausea and Denies vomiting Denies dysuria and Denies urinary frequency Neuro Reports Normal hearing present, Denies confusion, Denies dizziness, Denies syncope and Denies weakness Psych Denies confusion Physical exam (Primary Care) Vital Signs: Last Vital Signs Temp 97.3 F 04/02/25 16:35 Pulse 68 04/02/25 16:35 Resp 18 04/02/25 16:35 BP 156/92 H 04/02/25 16:35 Pulse Ox 96 04/02/25 16:35 Oxygen Delivery Method Room Air 04/02/25 16:35 BMI result Body Mass Index 31.4 Tobacco/Smoking Status: Tobacco use Status Tobacco use date assessed 04/02/25 04/02/25 16:45 Patient Tobacco Use Status Former Tobacco user 04/02/25 16:45 Tobacco use type Cigarette 04/02/25 16:45 e-Cigarette/Vaping Use Never Used 04/02/25 16:45 PHQ-9: PHQ-9 Score PHQ-9: Total score 0 04/02/25 16:45 Depression Screening Interpretation: Negative Thrive Assessment: Date of Thrive Assessment Date Thrive assessed 04/02/25 04/02/25 16:45 Currently or been in a relationship where the following occur: No concerns reported Const General: No confusion Orientation/consciousness: No confusion HENMT Head: Yes normocephalic Ears: external ears normal and TM's normal bilaterally Face and sinus: Yes normal facial exam Mouth: moist mucous membranes Throat: Yes tonsils normal Eyes Conjunctivae: conjunctivae normal Pupils: Equal, round and reactive pupils present and Pupil accommodation reflex normal Direct Ophthalmoscopy: normal light reflex Neck Neck: No lymphadenopathy Thyroid: Thyroid normal Chest Chest palpation & inspection: normal inspection of the chest Resp Effort & Inspection: normal respiratory effort and no audible wheezes Auscultation: clear to auscultation bilaterally, no crackles, no wheezes and lung sounds not diminished Cardio Rate: regular rate Rhythm: regular rhythm Peripheral pulses: radial pulses present and dorsalis pedis present GI Palpation (GI): no masses Auscultation: normal bowel sounds and normoactive bowel sounds Rectal Exam - Male: Yes deferred Skin General skin exam: no rashes or lesions noted Rashes: no rashes Neuro General: No confusion Cranial nerves: Yes Equal, round and reactive pupils present and Yes Normal hearing present Cognition (Neuro): normal cognition Gait exam (Neuro): Normal gait present Motor exam (neuro): 5/5 motor strength present throughout Deep tendon reflexes (DTR's): Right brachioradialis reflex intensity grade: 2+, Left brachioradialis reflex intensity grade: 2+, Right patellar reflex intensity grade: 2+ and Left patellar reflex intensity grade: 2+ Extrem General: No edema Coding Level of Care Code Est Pt Prev Care 40-64y(63458) Diagnoses Annual physical exam Z00.00 Primary hypertension I10 Hypertension type: primary hypertension Obesity (BMI 30-39.9) E66.9 Impaired glucose tolerance R73.02 Gastroesophageal reflux disease without esophagitis K21.9 Esophagitis presence: without esophagitis Fatty liver K76.0 Family history of melanoma Z80.8 Assessment & Plan Assessment & Plan (1) Annual physical exam: Code(s): Z00.00 - Encounter for general adult medical examination without abnormal findings Category: Medical Plan: Patient is advised to eat healthy, keep well hydrated, keep active and have adequate sleep. (2) Hypertension: Code(s): I10 - Essential (primary) hypertension Category: Medical Qualifiers: Hypertension type: primary hypertension Qualified Code(s): I10 - Essential (primary) hypertension Plan: Continue with blood pressure medication. Decrease salt intake and exercise patient on hydrochlorothiazide 12.5 mg once a day and lisinopril 20 mg once a day (3) Obesity (BMI 30-39.9): Code(s): E66.9 - Obesity, unspecified Category: Medical Plan: Diet and exercise (4) Impaired glucose tolerance: Code(s): R73.02 - Impaired glucose tolerance (oral) Category: Medical Plan: Decrease the amount of carbohydrate intake, pasta, bread, rice and potatoes are all sugar and that is aside from all the sweet stuff, remember that fruits are good but they are Sweet also. (5) GERD (gastroesophageal reflux disease): Code(s): K21.9 - Gastro-esophageal reflux disease without esophagitis Category: Medical Qualifiers: Esophagitis presence: without esophagitis Qualified Code(s): K21.9 - Gastro-esophageal reflux disease without esophagitis Plan: Avoid the foods that causes that usually spicy foods, tomato products, juices, coffee, soda and foods that your sensitive to. After eating do not lie down, allow 3-4 hours before in lie down. And keep the head of bed above 30 degrees to avoid the acid from going up. (6) Fatty liver: Code(s): K76.0 - Fatty (change of) liver, not elsewhere classified Category: Medical Plan: Low-fat diet and exercise (7) Family history of melanoma: Code(s): Z80.8 - Family history of malignant neoplasm of other organs or systems Category: Medical Plan History of Present Illness The patient is a 59-year-old male presenting for a physical examination and management of chronic conditions. The patient has a history of obesity, which has been a concern due to its impact on his overall health, including hypertension and hepatic steatosis. He has been advised to manage his weight through diet and exercise, aiming to reduce his weight to below 200 pounds. Hypertension has been managed with hydrochlorothiazide 12.5 mg and lisinopril 20 mg daily, though recent home measurements indicate elevated readings between 130-135/90-92 mmHg. The patient is considering increasing lisinopril to 30 mg daily to better control his blood pressure. The patient also has a history of gastroesophageal reflux disease, managed with dietary modifications including a low-fat diet. He reports occasional nocturnal coughing, which may be related to reflux. Impaired glucose tolerance has been noted, and the patient is advised to maintain a healthy diet and exercise regimen to prevent progression to diabetes. Hepatic steatosis was identified through previous imaging, and elevated liver function tests have been a consistent finding. The patient is aware that weight management is crucial in addressing this condition. Health Maintenance - Colonoscopy last performed in January 2018, next due soon - Blood work in October 2024 showed normal blood count, electrolytes, renal function, and blood sugar - Elevated liver function tests noted, consistent with hepatic steatosis - LDL cholesterol at 70 mg/dL, considered good - Prostate and thyroid function tests normal - Discussed shingles vaccination, recommended due to previous shingles episode Social History - Alcohol consumption reduced to three days a week, typically two drinks before bed - No tobacco use reported - Dietary changes include reduced carbohydrate intake and increased consumption of vegetables - Regular exercise encouraged to aid weight management Review of Systems - Cardiovascular: Reports elevated blood pressure readings at home. Denies chest pain or palpitations. - Respiratory: Reports occasional nocturnal coughing. Denies dyspnea or wheezing. - Gastrointestinal: Reports occasional heartburn, typically related to late meals or alcohol consumption. Denies nausea, vomiting, or dysphagia. - Neurological: Denies dizziness, syncope, or headaches. - Genitourinary: Denies dysuria or hematuria. Reports nocturia once per night. Physical Exam General: Cooperative, healthy appearing, comfortable, no acute distress and well developed Orientation: Patient oriented x3 Limitations: No limitations Head: Normal to inspection Ears: Hearing grossly normal bilaterally Nose: Normal external nose present Face and sinus: Normal facial exam Eyes: Appearance normal, both eyes and all related structures Neck: Normal visual inspection and Yes full ROM Respiratory: Normal respiratory effort and able to speak in complete sentences. Clear to auscultation bilaterally Cardiovascular: Regular rate and rhythm. Normal S1 and S2 GI: Normal to inspection. Soft to palpation and nontender Skin: No rashes or lesions noted Neuro: Patient oriented x3 Extremities: Normal to inspection Results - Labs: Normal blood count, electrolytes, renal function, and blood sugar as of October 2024 - Labs: Elevated liver function tests noted - Labs: LDL cholesterol at 70 mg/dL - Labs: Prostate and thyroid function tests normal Plan The management plan for hypertension includes considering an increase in lisinopril dosage to 30 mg daily to achieve better blood pressure control. The patient is advised to continue monitoring blood pressure at home and to focus on weight reduction through diet and exercise, aiming to reduce weight to below 200 pounds. For gastroesophageal reflux disease, the patient is encouraged to maintain a low-fat diet and avoid late meals and alcohol consumption to minimize symptoms. The patient is also advised to monitor for any worsening of nocturnal coughing, which may be related to reflux. Regarding hepatic steatosis, the patient is reminded of the importance of weight management and regular monitoring of liver function tests. The patient is encouraged to continue with dietary modifications and to reduce alcohol intake to support liver health. Preventative care measures include scheduling a colonoscopy, as the last one was performed in January 2018, and considering shingles vaccination due to a history of shingles. Patient was informed and verbally consented to the use of an ambient scribe for clinic note documentation during this visit. Discussion Notes During the visit, I discussed with the patient the importance of managing hypertension through medication adjustment and lifestyle changes, emphasizing the need for weight reduction and regular blood pressure monitoring. We also reviewed the management of gastroesophageal reflux disease, focusing on dietary modifications and monitoring symptoms. I highlighted the significance of addressing hepatic steatosis through weight management and reducing alcohol intake. Preventative care discussions included the need for a colonoscopy and the benefits of shingles vaccination, given the patient's history. Patient Instructions - Monitor blood pressure at home regularly and report any significant changes. - Follow a low-fat diet and avoid late meals and alcohol to manage reflux symptoms. - Focus on weight reduction through diet and exercise, aiming to get below 200 pounds. - Schedule a colonoscopy as the last one was in January 2018. - Consider getting a shingles vaccination due to previous shingles episode. Orders: Orders Hemoglobin A1c 1 Year R73.02 - Impaired glucose tolerance (oral) Comprehensive Met. Panel 1 Year R73.02 - Impaired glucose tolerance (oral) Complete Blood Count Auto Diff 1 Year R73.02 - Impaired glucose tolerance (oral) Lipid Panel 1 Year E78.00 - Pure hypercholesterolemia, unspecified, R73.02 - Impaired glucose tolerance (oral) Vitamin B12 and Folate 1 Year R73.02 - Impaired glucose tolerance (oral) Magnesium 1 Year R73.02 - Impaired glucose tolerance (oral) Free T4 (Free Thyroxine) 1 Year R73.02 - Impaired glucose tolerance (oral) Thyroid Stimulating Hormone 1 Year R73.02 - Impaired glucose tolerance (oral) Prostate Specific Antigen Scr 1 Year R73.02 - Impaired glucose tolerance (oral) Referrals Dermatology Referral Z80.8 - Family history of malignant neoplasm of other organs or systems Medications: Changed From lisinopril 20 mg PO DAILY 90 days 90 tabs 3RF I10 - Essential (primary) hypertension To lisinopril 30 mg PO DAILY 90 tabs 3RF 90 days I10 - Essential (primary) hypertension
== END 2025-04-02 17:23 | disposition home or self-care (01) ==
LOC: HO.HMCH 16:06
PROVIDERS: PCP Internal Medicine; Visit Provider Internal Medicine
DX: Z00.00 Encounter for general adult medical examination without abnormal findings (principal); I10 Essential (primary) hypertension; E66.9 Obesity, unspecified; Z68.31 Body mass index [BMI] 31.0-31.9, adult; R73.02 Impaired glucose tolerance (oral); K21.9 Gastro-esophageal reflux disease without esophagitis; K76.0 Fatty (change of) liver, not elsewhere classified; Z80.8 Family history of malignant neoplasm of other organs or systems

== ENCOUNTER → 2025-05-26 14:55 | Outpatient (BNVA) | payer SELFPAY | PROVIDERS: PCP Internal Medicine; Visit Provider Physician Assistant | DX: Z02.79 Encounter for issue of other medical certificate (principal) ==